=== PATIENT | female | born 1950 | race Caucasian/White ===

== ENCOUNTER → 2016-03-02 | Outpatient (CLI) | payer BC ==
[~2016-03-02] MED LIST: NO HOME MEDICATIONS; ZOFRAN 4MG T4 MG/TAB PO
== END ==
LOC: COL.RAD 08:09
DX: R10.13 Epigastric pain (principal)
CPT/HCPCS: Q9967

== ENCOUNTER → 2017-04-11 | Outpatient (CLI) | payer BC | LOC: MC.RAD 10:06 | DX: Z12.31 Encounter for screening mammogram for malignant neoplasm of breast (principal) ==

== ENCOUNTER → 2017-06-28 | Outpatient (CLI) | payer MEDICARE, OTHER | LOC: COL.VAS 13:06 | DX: M79.605 Pain in left leg (principal) ==